=== PATIENT | male | born 1975 | race Caucasian/White ===

== ENCOUNTER 2017-02-26 17:42 | Emergency (ER) | payer OTHER ==
[~2017-02-26] VITALS: Ht 175.3 cm; Wt 97.5 kg
[2017-02-26] MEDS ORDERED: EFFIENT10 MG PO (18:11)
[2017-02-26] MEDS ORDERED: ASPIR 8181 MG PO (18:11)
[2017-02-26] MEDS ORDERED: CLONAZEPAM 1 MG1 M1 PO (18:11)
[2017-02-26] MEDS ORDERED: ATORVASTATIN CA40 MG PO (18:11)
[2017-02-26] MEDS ORDERED: TIZANIDINE HCL4 MG PO (19:29)
[2017-02-26] MEDS ORDERED: NORCO 5-325 TA1 EACH PO (19:35)
[2017-02-26 19:43] VITALS: BP 127/85
== END 2017-02-26 19:42 | disposition home or self-care (01) ==
LOC: ER 17:42
DX: S16.1XXA Strain of muscle, fascia and tendon at neck level, initial encounter (principal); S39.012A Strain of muscle, fascia and tendon of lower back, initial encounter; Z88.0 Allergy status to penicillin; V89.2XXA Person injured in unspecified motor-vehicle accident, traffic, initial encounter; Y93.I9 Activity, other involving external motion; Y92.89 Other specified places as the place of occurrence of the external cause; Y99.8 Other external cause status

== ENCOUNTER 2020-12-31 16:25 | Emergency (ER) | payer OTHER ==
[~2020-12-31] VITALS: Ht 180.3 cm; Wt 99.8 kg
[~2020-12-31 16:25] MED LIST: ASPIR 8181 MG PO; ATORVASTATIN CA40 MG PO; CLONAZEPAM 1 MG1 M1 PO; EFFIENT10 MG PO; NORCO 5-325 TA1 EACH PO; TIZANIDINE HCL4 MG PO
[2020-12-31 16:29] VITALS: BP 139/85
[2020-12-31 17:18] LABS: HEMATOCRIT 37.4 % (42.0-52.0); HEMOGLOBIN 12.5 gm/dL (14.0-18.0); MCH 29.2 pg (26.0-34.0); MCHC 33.5 g/dL (28.0-37.0); MCV 87.2 fL (80.0-100.0); RBC 4.29 mil/uL (4.50-6.00); RDW 15.8 % (10.5-14.5)
[2020-12-31 17:26] LABS: ANION GAP 8 mmol/L (7-16); BUN 21 mg/dL (7-18); CALCIUM 8.5 mg/dL (8.5-10.1); CHLORIDE 102 mmol/L (98-107); CO2 29 mmol/L (21-32); CREATININE 1.1 mg/dL (0.7-1.3); GLUCOSE 92 mg/dL (74-106); POTASSIUM 4.1 mmol/L (3.5-5.1); SODIUM 139 mmol/L (136-145)
[2020-12-31 17:35] LABS: ALBUMIN 3.7 g/dL (3.4-5.0); SGOT 19 U/L (15-37); SGPT 28 U/L (30-65); TOTAL BILIRUBIN 0.4 mg/dL (0.2-1.0); TOTAL PROTEIN 7.2 g/dL (6.4-8.2); TROPONIN-I <0.06 ng/mL (<0.06)
--- NOTE | 2021-01-01 07:09 | EKG ---
[facility] [place] [address] ELECTROCARDIOGRAM REPORT Name: FAHAD RAMSEY Room #: DEP LUZ Goodwin#: [id number] Admission: 12/31/20 Attend Phys: Discharge: 12/31/20 Date of : 71 Report #: [id number] [facility] ED Test Date: 2020-12-31 Test Time: 16:35:24 Pat Name: FAHAD RAMSEY Department: Room: Gender: M [employer] Set Up Operator: : 1975 Requested By: Serene Doran Order Number: [id number] MD: Gilberto Martinez Measurements Intervals [place] Rate: 101 P: 50 [place]: 136 QRS: 66 QRSD: 76 T: 52 QT: 320 QTc: 415 Interpretive Statements Sinus tachycardia Probable left atrial enlargement Abnormal R-wave progression, early transition Baseline wander in lead(s) V1,V2 No previous ECG available for comparison Electronically Signed On 01-01-2021 7:09:02 CDT by Gilberto Martinez [email or web address] <ELECTRONICALLY SIGNED> By: Gilberto Martinez MD, [facility] 01/01/21 0709 [id number] Gilberto Martinez MD, FACC /EPI
== END 2020-12-31 19:55 | disposition home or self-care (01) ==
LOC: ER 16:25
PROVIDERS: Nurse Practitioner Family
DX: S61.512A Laceration without foreign body of left wrist, initial encounter (principal); Z79.891 Long term (current) use of opiate analgesic; Z79.82 Long term (current) use of aspirin; Z79.899 Other long term (current) drug therapy; Z88.0 Allergy status to penicillin; Z88.6 Allergy status to analgesic agent; W86.0XXA Exposure to domestic wiring and appliances, initial encounter; Y93.89 Activity, other specified; Y92.89 Other specified places as the place of occurrence of the external cause; Y99.8 Other external cause status